=== PATIENT | female | born 1970 | race Caucasian/White ===

== ENCOUNTER → 2017-04-17 | Outpatient (CLI) | payer MEDICARE, MEDICAID ==
[2017-04-17 16:16] LABS: HEMATOCRIT 40.6 % (37.0-47.0); HEMOGLOBIN 14.1 g/dL (12.5-16.0); MEAN PLATELET VOLUME 10.7 fl (7.4-10.4); RED BLOOD COUNT 4.61 M/mm3 (4.10-5.30); RED CELL DISTRIBUTION WIDTH 12.5 % (11.5-14.5); WHITE BLOOD COUNT 6.5 K/mm3 (4.8-10.8)
[2017-04-17 16:24] LABS: ALBUMIN 4.1 g/dL (3.5-5.0); BUN/CREATININE RATIO 18.6 (6.0-26.0); CALCIUM 9.7 mg/dL (8.4-10.2); POTASSIUM 4.1 mmol/L (3.6-5.0); TOTAL BILIRUBIN 0.5 mg/dL (0.2-1.3); TOTAL PROTEIN 7.2 g/dL (6.3-8.2)
== END ==
LOC: LAB 15:49
PROVIDERS: Family Medicine
DX: R53.83 Other fatigue (principal); G43.909 Migraine, unspecified, not intractable, without status migrainosus; Z83.49 Family history of other endocrine, nutritional and metabolic diseases

== ENCOUNTER → 2017-05-20 | Outpatient (CLI) | payer MEDICARE, MEDICAID | LOC: LAB 13:04 | DX: L50.9 Urticaria, unspecified (principal); R53.83 Other fatigue; Z83.49 Family history of other endocrine, nutritional and metabolic diseases; G45.9 Transient cerebral ischemic attack, unspecified ==

== ENCOUNTER → 2017-08-06 | Outpatient (CLI) | payer MEDICARE, MEDICAID | LOC: LAB 12:20 | PROVIDERS: Family Medicine | DX: E03.9 Hypothyroidism, unspecified (principal) ==